=== PATIENT | female | born 1940 | race Caucasian/White ===

== ENCOUNTER → 2022-05-16 08:32 | Outpatient (CLI) | payer OTHER, SELFPAY ==
[2022-05-16 10:49] LABS: COVID19 -Nasal RAPID Negative (Negative)
--- NOTE | 2022-05-16 18:53 | DI.NM.S_ITS ---
DATE OF SERVICE: 05/16/2022 PROCEDURE PERFORMED: Exercise treadmill stress and rest myocardial perfusion imaging with gating to assess ejection fraction and regional wall motion. ORDERING PROVIDER: Dr. Sudheer Reis. INDICATIONS: The patient is a 81-year-old female with exertional dyspnea and chest discomfort. CARDIAC STRESS: The patient was able to exercise for a total of 9 minutes, 4 seconds on a standard Grady protocol, but could have gone further, suggesting excellent exercise capacity with an MART of -80%. She had a normal heart rate response to exercise, achieving a maximum heart rate of 144 BPM (102% of her predicted maximum) and a borderline hypertensive blood pressure response with a resting blood pressure of 150/82, increasing to a maximum of 190/100. She had no chest discomfort or other anginal symptom. Her resting ECG is normal with normal ST segments. With stress, she developed some mild, nonspecific upsloping ST depression that resolves within 1 minute of recovery, and thus is not significant. There were no arrhythmias. At 7 minutes of exercise at a heart rate of 137 BPM, 25.6 millicuries of technetium-99m Myoview was injected and she was imaged 20 minutes later using a quantitated gated SPECT protocol. Earlier in the day while at rest, she had been injected with 12.9 millicuries of technetium-99m Myoview and was imaged 20 minutes later, again using a gated SPECT acquisition protocol. FINDINGS: 1. Raw data: There is fairly good myocardial tracer uptake, although breast prostheses clearly produce significant attenuation artifact over the anterior wall. There is also some small bowel activity adjacent to the inferior wall on the resting images. The lung/heart ratio is high-normal at 0.41, but likely artifactually elevated because of the breast prostheses. TID ratio is normal at 1.13. 2. Quantitated gated SPECT: Post-stress ejection fraction is 86% without any focal wall motion abnormality. Resting ejection fraction is 79% with a normal resting end-diastolic volume of 63 mL. 3. Myocardial perfusion imaging: Post-stress supine images shows a normal myocardial perfusion pattern, supported by normal perfusion imaging in the prone position. The resting images show a similar perfusion pattern with a slight defect in the distal anterior wall, likely due to the breast prostheses. IMPRESSION: 1. Normal myocardial perfusion study. 2. No evidence of myocardial ischemia or previous myocardial infarction. 3. High-normal left ventricular systolic function without any focal wall motion abnormality. 4. Exceptional exercise capacity without angina or ECG evidence of ischemia. She had a borderline hypertensive blood pressure response to exercise. Altagracia Dyson - NIGEL/scott/johnathan doc#: [id number]/job#: [id number] dd: 05/16/2022 16:50:00 dt: 05/16/2022 17:57:00 DICTATING /COPIES TO: Devon Yancey MD COPIES MNE: GERDA;
== END ==
PROVIDERS: Specialist; PCP Family Medicine; Referring Provider Family Medicine; Visit Provider Family Medicine
DX: R07.89 Other chest pain (principal); R06.00 Dyspnea, unspecified; Z20.822 Contact with and (suspected) exposure to COVID-19
CPT/HCPCS: 78452; 87635; 93017; A9502